=== PATIENT | male | born 1975 | race Caucasian/White ===

== ENCOUNTER 2019-10-12 13:17 | Outpatient (CLI) | payer OTHER, SELFPAY ==
--- NOTE | 2019-10-12 13:22 | XR_ITS ---
WS: [id number] ABDOMEN KUB CLINICAL INFORMATION: Renal/ureteral calculi. COMPARISON: October 11, 2018 FINDINGS: No visualized renal parenchymal or ureteral calculi today. Normal bowel gas pattern. Mild lumbar curv e convex right. Stable acetabular protrusio XR/XR KUB [id number] Impression: No renal parenchymal or ureteral calculi.
== END 2019-10-12 13:18 | disposition home or self-care (01) ==
LOC: RAD 13:20
PROVIDERS: Family Provider Nurse Practitioner Family; PCP Nurse Practitioner Family; Visit Provider Urology
DX: N20.2 Calculus of kidney with calculus of ureter
CPT/HCPCS: 74018; 81001

== ENCOUNTER 2020-10-15 08:09 | Outpatient (CLI) | payer OTHER, SELFPAY ==
--- NOTE | 2020-10-15 08:15 | XR_ITS ---
WS: [id number] Exam: XR KUB [id number] Date/Time of Exam: 10/15/2020 8:19 AM Reason For Exam: N20.0 - Calculus of kidney Comparison 10/12/2019. No bowel obstruction or free air. Moderate amount retained stool in the colon. No obvious calcificati on superimpose the kidneys. Regional bony elements are intact. Visualized organ margins are unremarka ble. XR/XR KUB [id number] IMPRESSION: 1. No obvious calcifications identified in the region of the kidneys. 2. Moderate amount retained stool in the colon.
== END 2020-10-15 08:10 | disposition home or self-care (01) ==
LOC: RAD 08:13
PROVIDERS: PCP Nurse Practitioner Family; Visit Provider Urology
DX: N20.0 Calculus of kidney (principal)
CPT/HCPCS: 74018; 81003

== ENCOUNTER 2021-04-16 08:30 | Outpatient (CLI) | payer OTHER, SELFPAY ==
--- NOTE | 2021-04-16 08:37 | XR_ITS ---
WS: [id number] Exam: XR KUB [id number] Date/Time of Exam: 04/16/2021 8:39 AM Reason For Exam: UROLITHIASIS No bowel obstruction or free air. No calcifications noted in the region of the kidneys. No sign of or rossi enlargement. Moderately advanced DJD of both hips with the medial protrusion of the bilateral nicholas tabula. XR/XR KUB [id number] IMPRESSION: 1. No acute abdominal finding. 2. No calcifications are seen in the region of the kidneys.
== END 2021-04-16 08:31 | disposition home or self-care (01) ==
LOC: RAD 08:32
PROVIDERS: PCP Nurse Practitioner Family; Visit Provider Urology
DX: N20.9 Urinary calculus, unspecified (principal)
CPT/HCPCS: 74018; 81003

== ENCOUNTER 2021-11-27 06:53 | Outpatient (CLI) | payer OTHER, SELFPAY ==
--- NOTE | 2021-11-27 07:00 | XR_ITS ---
WS: [id number] Exam: XR KUB [id number] Date/Time of Exam: 11/27/2021 6:58 AM Reason For Exam: CALCULUS OF KIDNEY WITH CALCULUS OF URETER Comparison 04/16/2021. No bowel obstruction or free air. Small calcification superimpose both renal silhouettes and may repr esent renal calculi or debris in the GI tract. No sign of organ enlargement. Moderate degenerative ch ana of both hips with the medial protrusion of the acetabuli. XR/XR KUB [id number] IMPRESSION: 1. No acute abdominal finding. 2. Small calcification superimpose both kidneys. This may represent renal calcu li or debris in the GI tract.
== END 2021-11-27 06:54 | disposition home or self-care (01) ==
PROVIDERS: PCP Nurse Practitioner Family; Visit Provider Urology
DX: N20.2 Calculus of kidney with calculus of ureter (principal)
CPT/HCPCS: 74018; 81003

== ENCOUNTER 2022-02-25 12:11 | Emergency (ER) | payer OTHER, SELFPAY ==
[2022-02-25 12:30] VITALS: BP 179/116; PULSE 90; RESP 14; TEMP 36.5; O2SAT 98
--- NOTE | 2022-02-25 12:43 | ED_ITS ---
Documented by User: ANABELL Banegas 02/26/22 08:52 HPI - Abdominal Pain General: Chief Complaint: Abdominal Pain Stated Complaint: Lower back pain Time Seen by Provider: 02/25/22 12:38 History of Present Illness: Patient is a 46-year-old male comes to the ED with right flank pain. Symptoms started yesterday evening. Symptoms started after he ate dinner yesterday. Patient has a history of kidney stones and says this pain is similar to past kidney stones. Pain is located in the right lower back and radiates into his right flank. He rates his pain currently a 9 out of 10. Endorses decreased appetite,nausea and vomiting due to pain. He denies having any dysuria, hematuria, or fevers. Associated Symptoms: Reports nausea and vomiting; Denies chills, constipation, diarrhea, dysuria, fever(s), hematochezia and hematuria Review of Systems Const: Denies: fever(s), chills or fatigue Eyes: Denies: change in vision or eye discomfort ENMT: Denies: throat pain, odynophagia, nasal discharge or nasal congestion Card: Denies: chest pain, palpitations, edema, swelling of feet/ankles, dyspnea on exertion or orthopnea Resp: Denies: dyspnea, productive cough or non-productive cough GI: Reports: nausea and vomiting; Denies: abdominal pain, diarrhea, constipation or hematochezia : Reports: flank pain (Right sided); Denies: difficulty urinating, dysuria or hematuria Musc: Denies: neck pain, back pain or extremity swelling Skin/Breast: Denies: rash or new lesions Neuro: Denies: headache(s), numbness in extremities or weakness in extremities PFS ED PFSH: Medical History Calcium ureterolithiasis Hypertension S/P extracorporeal shock wave therapy Urolithiasis Family History Father Lung disease Mother No problems noted. Social History Smoking and tobacco status: never smoked Alcohol intake: never Marital status: Current occupational status: employed History of recent travel: No Physical Exam Const: COMMON NORMALS: patient oriented x3 and alert GENERAL APPEARANCE: co operative HENMT: COMMON NORMALS: normocephalic HEAD & SCALP: normocephalic MOUTH: Normal oral and palatal mucosa present THROAT: posterior oropharynx normal and uvula midline Neck/C-Spine: COMMON NORMALS: supple GENERAL: Yes normal visual inspection Resp: COMMON NORMALS: normal respiratory effort, No retractions, No use of accessory muscles and clear to auscultation bilaterally AUSCULTATION: clear to auscultation bilaterally Cardio: COMMON NORMALS: regular rate, regular rhythm, S1 normal heart sound present, S2 normal heart sound present, No gallops present (Cardio), No clicks present (Cardio), No murmurs present (Cardio) and Peripheral pulses 2+ throughout RATE: regular rate RHYTHM: regular rhythm HEART SOUNDS: S1 normal heart sound present and S2 normal heart sound present PERIPHERAL PULSES: Peripheral pulses 2+ throughout GI: COMMON NORMALS: Normal to inspection, nondistended, normoactive bowel sounds present, Soft to palpation, non-tender and no masses PALPATION: Yes Soft to palpation : BLADDER/KIDNEY EXAM: Yes CVA tenderness on the right Back/Pelvis: GENERAL BACK: Yes CVA tenderness Extremity: COMMON NORMALS: normal to inspection Neuro: COMMON NORMALS: patient oriented x3 SENSORIUM/ORIENTATION: Yes alert GAIT: Yes Normal gait present Skin: GENERAL SKIN EXAM: dry skin Course ED course: Right after patient had IV placed he had a syncopal episode. He denies any shortness of breath or chest pain. After some IV fluids he said he was feeling back to normal. Patient's pain and nausea was controlled here in the ED with meds and he was able to keep p.o. fluids down. Vital Signs: Vital signs: Vital Signs Temperature 97.7 F 02/25/22 12:30 Pulse Rate 78 02/25/22 13:23 Respiratory Rate 18 02/25/22 13:36 Blood Pressure 182/76 02/25/22 13:23 Pulse Oximetry 100 02/25/22 13:36 Oxygen Delivery Me thod 02/25/22 13:23 MDM - Abdominal Pain Medical Decision Making Patient is a 46-year-old male comes to the ED with right flank pain. Symptoms started yesterday evening. Symptoms started after he ate dinner yesterday. Patient has a history of kidney stones and says this pain is similar to past kidney stones. Pain is located in the right lower back and radiates into his right flank. He rates his pain currently a 9 out of 10. Endorses decreased appetite,nausea and vomiting due to pain. He denies having any dysuria, hematuria, or fevers. Vitals are stable. Exam of patient shows some right flank and right CVA tenderness. Rest of exam is benign. White blood cell count 13.7, lipase was normal at 16. And the rest of CBC and CMP were unremarkable. UA showed a little bit of red blood cells. Patient had a syncopal episode after IV, so further work-up was done. Troponins negative and EKG showed normal sinus rhythm right after patient had IV placed he had a syncopal episode. He denies any shortness of breath or chest pain. CT of abdomen pelvis showed some mild inflammatory stranding in the head of the pancreas suspicious for acute pancreatitis. After some IV fluids he said he was feeling back to normal. Patient's pain and nausea was controlled here in the ED with meds and he was able to keep p.o. fluids down. Patient was stable for outpatient treatment of pancreatitis. He was told to have 48 hours of bowel rest and to only have a clear liquid diet. Then after that advance diet slowly as tolerated. He was sent home with a prescription for nausea meds and hydrocodone for pain. Strict return to ED precautions given. He was told to follow-up with his PCP in the next 3 to 5 days for reevaluation. Patient understood and agreed with plan. Lab Data I reviewed the patient's lab results. : 02/25/22 13:00 02/25/22 13:00 Labs/Radiology: Radiology Impressions Abdomen/Pelvis CT 02/25/22 13:16 IMPRESSION: 1. Mild inflammatory stranding in the head of the pancreas suspicious for acute pancreatitis. Recommend correlation with pancreatic enzymes. No fluid collections. 2. No obstructing renal or ureteral calculi bilaterally. 3. Small esophageal hiatal hernia. 4. Noncalcified nodule RIGHT lower lobe measuring 6 mm recommend 6 month follow-up chest CT. 5. Mild prostate prominence measuring 4.1 cm. Notified ANABELL Banegas at 02/25/2022 2:26 PM. Laboratory Results WBC 13.7 10^3/uL (4.0-10.0) H 02/25/22 13:00 RBC 5.74 10^6/uL (4.1-5.3) H 02/25/22 13:00 Hgb 17.5 g/dL (11.7-16.6) H 02/25/22 13:00 Hct 49.5 % (42.0-52.0) 02/25/22 13:00 MCV 86.2 fl (80-94) 02/25/22 13:00 MCH 30.5 pg (28.0-34.0) 02/25/22 13:00 MCHC 35.4 g/dL (30.0-36.0) 02/25/22 13:00 RDW 12.7 % (12.1-15.1) 02/25/22 13:00 Plt Count 249 10^3/cmm (130-400) 02/25/22 13:00 MPV 10.4 fL (7.4-10.4) 02/25/22 13:00 Neut % (Auto) 84.0 % 02/25/22 13:00 Lymph % (Auto) 11.3 % 02/25/22 13:00 [place] % (Auto) 3.9 % 02/25/22 13:00 Eos % (Auto) 0.2 % 02/25/22 13:00 Baso % (Auto) 0.2 % 02/25/22 13:00 Neut # (Auto) 11.54 10^3/uL (1.8-7.7) H 02/25/22 13:00 Lymph # (Auto) 1.6 10^3/uL (0.8-4.8) 02/25/22 13:00 [place] # (Auto) 0.5 10^3/uL (0.2-0.9) 02/25/22 13:00 Eos # (Auto) 0.0 10^3/uL (0.0-0.8) 02/25/22 13:00 Baso # (Auto) 0.0 10^3/uL (0.0-0.1) 02/25/22 13:00 Nucleated RBC % (auto) 0 % 02/25/22 13:00 Nucleated RBCs # 0.0 /100WBC 02/25/22 13:00 Sodium 134 mmol/L (136-145) L 02/25/22 13:00 Potassium 3.9 mmol/L (3.5-5.1) 02/25/22 13:00 Chloride 97 mmol/L (98-107) L 02/25/22 13:00 Carbon Dioxide 26 mmol/L (22-29) 02/25/22 13:00 Anion Gap 14.9 (5-19) 02/25/22 13:00 BUN 12 mg/dL (6-20) 02/25/22 13:00 Creatinine 0.8 mg/dL (0.7-1.2) 02/25/22 13:00 GFR Calculation 103.2 mL/min (90-130) 02/25/22 13:00 Glucose 137 mg/dL (65-115) H 02/25/22 13:00 Calculated Osmolality 280 mOsm/kg (285-295) L 02/25/22 13:00 Calcium 9.7 mg/dL (8.5-10.5) 02/25/22 13:00 Total Bilirubin 0.8 mg/dL (0.15-1.2) 02/25/22 13:00 AST 18 U/L (0-40) 02/25/22 13:00 ALT 20 U/L (0-41) 02/25/22 13:00 Alkaline Phosphatase 85 U/L (40-130) 02/25/22 13:00 Troponin T Baseline 6 ng/L (0-15) 02/25/22 13:00 Troponin T 120 Minute 6.00 ng/L (0-15) 02/25/22 15:05 Delta Troponin T 0 ABS# (0-10) 02/25/22 15:05 Total Protein 7.7 g/dL (6.6-8.7) 02/25/22 13:00 Albumin 4.6 g/dL (3.5-5.2) 02/25/22 13:00 Globulin 3.1 g/dL (1.3-4.6) 02/25/22 13:00 Lipase 16 U/L (13-60) 02/25/22 13:00 Urine Color Yellow (Yellow) 02/25/22 13:18 Urine Appearance Clear (CLEAR) 02/25/22 13:18 Urine pH 6.5 (5-7) 02/25/22 13:18 Ur Specific [place] 1.015 (1.005-1.030) 02/25/22 13:18 Urine Protein Trace (Negative) 02/25/22 13:18 Urine Glucose (UA) Norm (Normal) 02/25/22 13:18 Urine Ketones 1+ (Negative) H 02/25/22 13:18 Urine Blood Neg (Negative) 02/25/22 13:18 Urine Nitrate Negative (Negative) 02/25/22 13:18 Urine Bilirubin Neg (Negative) 02/25/22 13:18 Urine Urobilinogen 1 mg/dL (Negative) H 02/25/22 13:18 Ur Leukocyte Esterase Negative (Negative) 02/25/22 13:18 Urine RBC 0-4 /hpf (0-2) H 02/25/22 13:18 Urine WBC 0-4 /hpf (0-5) H 02/25/22 13:18 Ur Squamous Epith Cells 0-4 /hpf (0-5) H 02/25/22 13:18 Amorphous Sediment Not Reportable 02/25/22 13:18 Urine Bacteria None /hpf (NONE) 02/25/22 13:18 Discharge Plan Discharge Patient Disposition: Home Clinical Impression: Pancreatitis Qualifiers: Chronicity: acute Pancreatitis type: unspecified pancreatitis type Acute pancreatitis complication: no infection or necrosis Qualified Code(s): K85.90 - Acute pancreatitis without necrosis or infection, unspecified Condition: Stable Prescriptions: New ondansetron 4 mg tablet,disintegrating 4 mg PO Q8H PRN (Reason: nausea and vomiting) Qty: 21 0RF No Action atorvastatin 10 mg tablet 10 mg PO DAILY cetirizine [Zyrtec] 10 mg tablet 10 mg PO DAILY PRN allopurinol 300 mg tablet 300 mg PO DAILY amlodipine-olmesartan 10-40 mg tablet 1 tab PO DAILY azithromycin 250 mg tablet See Rx Instructions PO .COMPLEX Qty: 6 0RF Rx Instructions: For 250 mg dose pack: take 500 mg today (day 1), then 250 mg for 4 days (days 2-5) PO prednisone 20 mg tablet 20 mg PO DAILY Qty: 3 0RF Discharge Orders: Discharge ED (Routine); Ordered 02/25/22 Ordered By: Reginaldo Roberts Referrals: Yi Medrano FNP-C [Primary Care Provider] - Discharge Diet: Advance as tolerated and Clear Liquid Discharge Activity: Increase activity as tolerated Patient Instructions: Pancreatitis (ED), Opioid Safety Activity Restrictions/Additional Instructions: Follow-up with your PCP within the next 2 to 3 days for reevaluation. Clear liquid diet for the next 48 hours then after that slowly advance diet as tolerated. Make sure you are drinking plenty water and staying hydrated. Take medications as prescribed. Return to the ER or your medical provider if condition worsens. Please read and understand discharge instructions. Thank you for choosing [facility] for your healthcare needs today. Please realize this is an emergency room and that we are providing you with a medical screening exam and this may not be complete and all inclusive of all the testing and or work up that you may need to determine your ailment or severity of your illness. It is very important that you follow up as instructed or that you return to the Emergency Department should you have concerns or if your condition changes or worsens in any way. Coding Level of Care Code ED Vice President Of Operations for Chg Fwd Exam Comprehensive Documented by User: Yannick Moya MD 03/01/22 20:43 HPI - Abdominal Pain General: Chief Complaint: Abdominal Pain Stated Complaint: Lower back pain Time Seen by Provider: 02/25/22 12:38 [facility] ED PFSH: Medical History Calcium ureterolithiasis Hypertension S/P extracorporeal shock wave therapy Urolithiasis Family History Father Lung disease Mother No problems noted. Social History Smoking and tobacco status: never smoked Alcohol intake: never Marital status: Current occupational status: employed History of recent travel: No Course Vital Signs: Vital signs: Vital Signs Temperature 97.7 F 02/25/22 12:30 Pulse Rate 78 02/25/22 13:23 Respiratory Rate 18 02/25/22 13:36 Blood Pressure 182/76 02/25/22 13:23 Pulse Oximetry 100 02/25/22 13:36 Oxygen Delivery Me thod 02/25/22 13:23 MDM - Abdominal Pain Medical Decision Making Patient is a 46-year-old male comes to the ED with right flank pain. Symptoms started yesterday evening. Symptoms started after he ate dinner yesterday. Patient has a history of kidney stones and says this pain is similar to past kidney stones. Pain is located in the right lower back and radiates into his right flank. He rates his pain currently a 9 out of 10. Endorses decreased appetite,nausea and vomiting due to pain. He denies having any dysuria, hematuria, or fevers. Vitals are stable. Exam of patient shows some right flank and right CVA tenderness. Rest of exam is benign. White blood cell count 13.7, lipase was normal at 16. And the rest of CBC and CMP were unremarkable. UA showed a little bit of red blood cells. Patient had a syncopal episode after IV, so further work-up was done. Troponins negative and EKG showed normal sinus rhythm right after patient had IV placed he had a syncopal episode. He denies any shortness of breath or chest pain. CT of abdomen pelvis showed some mild inflammatory stranding in the head of the pancreas suspicious for acute pancreatitis. After some IV fluids he said he was feeling back to normal. Patient's pain and nausea was controlled here in the ED with meds and he was able to keep p.o. fluids down. Patient was stable for outpatient treatment of pancreatitis. He was told to have 48 hours of bowel rest and to only have a clear liquid diet. Then after that advance diet slowly as tolerated. He was sent home with a prescription for nausea meds and hydrocodone for pain. Strict return to ED precautions given. He was told to follow-up with his PCP in the next 3 to 5 days for reevaluation. Patient understood and agreed with plan. I discussed this case with ANABELL Banegas. I have reviewed documentation. Yannick Moya MD Emergency Medicine Lab Data : 02/25/22 13:00 02/25/22 13:00 Labs/Radiology: Radiology Impressions Abdomen/Pelvis CT 02/25/22 13:16 IMPRESSION: 1. Mild inflammatory stranding in the head of the pancreas suspicious for acute pancreatitis. Recommend correlation with pancreatic enzymes. No fluid collecti ons. 2. No obstructing renal or ureteral calculi bilaterally. 3. Small esophageal hiatal hernia. 4. Noncalcified nodule RIGHT lower lobe measuring 6 mm recommend 6 month follow-up chest CT. 5. Mild prostate prominence measuring 4.1 cm. Notified ANABELL Banegas at 02/25/2022 2:26 PM. Laboratory Results WBC 13.7 10^3/uL (4.0-10.0) H 02/25/22 13:00 RBC 5.74 10^6/uL (4.1-5.3) H 02/25/22 13:00 Hgb 17.5 g/dL (11.7-16.6) H 02/25/22 13:00 Hct 49.5 % (42.0-52.0) 02/25/22 13:00 MCV 86.2 fl (80-94) 02/25/22 13:00 MCH 30.5 pg (28.0-34.0) 02/25/22 13:00 MCHC 35.4 g/dL (30.0-36.0) 02/25/22 13:00 RDW 12.7 % (12.1-15.1) 02/25/22 13:00 Plt Count 249 10^3/cmm (130-400) 02/25/22 13:00 MPV 10.4 fL (7.4-10.4) 02/25/22 13:00 Neut % (Auto) 84.0 % 02/25/22 13:00 Lymph % (Auto) 11.3 % 02/25/22 13:00 [place] % (Auto) 3.9 % 02/25/22 13:00 Eos % (Auto) 0.2 % 02/25/22 13:00 Baso % (Auto) 0.2 % 02/25/22 13:00 Neut # (Auto) 11.54 10^3/uL (1.8-7.7) H 02/25/22 13:00 Lymph # (Auto) 1.6 10^3/uL (0.8-4.8) 02/25/22 13:00 [place] # (Auto) 0.5 10^3/uL (0.2-0.9) 02/25/22 13:00 Eos # (Auto) 0.0 10^3/uL (0.0-0.8) 02/25/22 13:00 Baso # (Auto) 0.0 10^3/uL (0.0-0.1) 02/25/22 13:00 Nucleated RBC % (auto) 0 % 02/25/22 13:00 Nucleated RBCs # 0.0 /100WBC 02/25/22 13:00 Sodium 134 mmol/L (136-145) L 02/25/22 13:00 Potassium 3.9 mmol/L (3.5-5.1) 02/25/22 13:00 Chloride 97 mmol/L (98-107) L 02/25/22 13:00 Carbon Dioxide 26 mmol/L (22-29) 02/25/22 13:00 Anion Gap 14.9 (5-19) 02/25/22 13:00 BUN 12 mg/dL (6-20) 02/25/22 13:00 Creatinine 0.8 mg/dL (0.7-1.2) 02/25/22 13:00 GFR Calculation 103.2 mL/min (90-130) 02/25/22 13:00 Glucose 137 mg/dL (65-115) H 02/25/22 13:00 Calculated Osmolality 280 mOsm/kg (285-295) L 02/25/22 13:00 Calcium 9.7 mg/dL (8.5-10.5) 02/25/22 13:00 Total Bilirubin 0.8 mg/dL (0.15-1.2) 02/25/22 13:00 AST 18 U/L (0-40) 02/25/22 13:00 ALT 20 U/L (0-41) 02/25/22 13:00 Alkaline Phosphatase 85 U/L (40-130) 02/25/22 13:00 Troponin T Baseline 6 ng/L (0-15) 02/25/22 13:00 Troponin T 120 Minute 6.00 ng/L (0-15) 02/25/22 15:05 Delta Troponin T 0 ABS# (0-10) 02/25/22 15:05 Total Protein 7.7 g/dL (6.6-8.7) 02/25/22 13:00 Albumin 4.6 g/dL (3.5-5.2) 02/25/22 13:00 Globulin 3.1 g/dL (1.3-4.6) 02/25/22 13:00 Lipase 16 U/L (13-60) 02/25/22 13:00 Urine Color Yellow (Yellow) 02/25/22 13:18 Urine Appearance Clear (CLEAR) 02/25/22 13:18 Urine pH 6.5 (5-7) 02/25/22 13:18 Ur Specific [place] 1.015 (1.005-1.030) 02/25/22 13:18 Urine Protein Trace (Negative) 02/25/22 13:18 Urine Glucose (UA) Norm (Normal) 02/25/22 13:18 Urine Ketones 1+ (Negative) H 02/25/22 13:18 Urine Blood Neg (Negative) 02/25/22 13:18 Urine Nitrate Negative (Negative) 02/25/22 13:18 Urine Bilirubin Neg (Negative) 02/25/22 13:18 Urine Urobilinogen 1 mg/dL (Negative) H 02/25/22 13:18 Ur Leukocyte Esterase Negative (Negative) 02/25/22 13:18 Urine RBC 0-4 /hpf (0-2) H 02/25/22 13:18 Urine WBC 0-4 /hpf (0-5) H 02/25/22 13:18 Ur Squamous Epith Cells 0-4 /hpf (0-5) H 02/25/22 13:18 Amorphous Sediment Not Reportable 02/25/22 13:18 Urine Bacteria None /hpf (NONE) 02/25/22 13:18 Discharge Plan Discharge Patient Disposition: Home Clinical Impression: Pancreatitis Qualifiers: Chronicity: acute Pancreatitis type: unspecified pancreatitis type Acute pancreatitis complication: no infection or necrosis Qualified Code(s): K85.90 - Acute pancreatitis without necrosis or infection, unspecified Condition: Stable Prescriptions: New ondansetron 4 mg tablet,disintegrating 4 mg PO Q8H PRN (Reason: nausea and vomiting) Qty: 21 0RF No Action atorvastatin 10 mg tablet 10 mg PO DAILY cetirizine [Zyrtec] 10 mg tablet 10 mg PO DAILY PRN allopurinol 300 mg tablet 300 mg PO DAILY amlodipine-olmesartan 10-40 mg tablet 1 tab PO DAILY azithromycin 250 mg tablet See Rx Instructions PO .COMPLEX Qty: 6 0RF Rx Instructions: For 250 mg dose pack: take 500 mg today (day 1), then 250 mg for 4 days (days 2-5) PO prednisone 20 mg tablet 20 mg PO DAILY Qty: 3 0RF Discharge Orders: Discharge ED (Routine); Ordered 02/25/22 Ordered By: Reginaldo Roberts Referrals: Yi Medrano FNP-C [Primary Care Provider] - Discharge Diet: Advance as tolerated and Clear Liquid Discharge Activity: Increase activity as tolerated Patient Instructions: Pancreatitis (ED), Opioid Safety Activity Restrictions/Additional Instructions: Follow-up with your PCP within the next 2 to 3 days for reevaluation. Clear liquid diet for the next 48 hours then after that slowly advance diet as tolerated. Make sure you are drinking plenty water and staying hydrated. Take medications as prescribed. Return to the ER or your medical provider if conditi on worsens. Please read and understand discharge instructions. Thank you for choosing [facility] for your healthcare needs today. Please realize this is an emergency room and that we are providing you with a medical screening exam and this may not be complete and all inclusive of all the testing and or work up that you may need to determine your ailment or severity of your illness. It is very important that you follow up as instructed or that you return to the Emergency Department should you have concerns or if your condition changes or worsens in any way. Coding Level of Care Code ED Vice President Of Operations for Chg Fwd Exam Comprehensive
[2022-02-25] MEDS: ondansetron 2 mg/ML SDV 2 mL 4 MG IVP (12:56)
[2022-02-25] MEDS: sodium chloride 0.9% 500 ML 999 ML IV (13:07)
[2022-02-25 13:15] LABS: Basophils % 0.2 %; Eosinophils % 0.2 %; Hematocrit 49.5 % (42.0-52.0); Hemoglobin 17.5 g/dL (11.7-16.6); Lymphocytes # 1.6 10^3/uL (0.8-4.8); Lymphocytes % 11.3 %; Mean Corpuscular HGB Conc 35.4 g/dL (30.0-36.0); Mean Corpuscular Hemoglobin 30.5 pg (28.0-34.0); Mean Corpuscular Volume 86.2 fl (80-94); Mean Platelet Volume 10.4 fL (7.4-10.4); Monocytes # 0.5 10^3/uL (0.2-0.9); Monocytes % 3.9 %; Neutrophils # 11.54 10^3/uL (1.8-7.7); Nucleated Red Blood Cells % 0 %; Platelet Count 249 10^3/cmm (130-400); Red Blood Count 5.74 10^6/uL (4.1-5.3); Red Cell Distribution Width 12.7 % (12.1-15.1); White Blood Count 13.7 10^3/uL (4.0-10.0)
--- NOTE | 2022-02-25 13:16 | CT_ITS ---
WS: [id number] CT ABDOMEN PELVIS TECHNIQUE: Noncontrast CT of the abdomen and pelvis with coronal and sagittal reformatted images. CLINICAL INFORMATION: Right flank pain COMPARISON: 2018 DLP: 1210.[address] scans at [facility] use at least one of these dose optimization techniques: automated e xposure control; mA and/or kV adjustment per patient size (includes targeted exams where dose is matc hed to clinical indication); or iterative reconstruction. FINDINGS: No hydronephrosis in RIGHT kidney. RIGHT ureter is decompressed. No obstructing RIGHT renal or ureter al calculi. No obstructing LEFT renal or ureteral calculi. Tiny nonobstructing calyceal tip calculi bilaterally. Fatty atrophy of the pancreas. Slight induration and edema involving the head of the pancreas suspici ous for pancreatitis. Correlation with pancreatic enzymes. Small esophageal hiatal hernia. Normal nor mal-appearing gallbladder. Slight atelectasis in the lung bases. Noncalcified nodule RIGHT lower lobe measuring 6 mm. Recommend 6 month follow-up chest CT. Nodule is new since 2018. Adrenal glands are normal. Normal caliber abdominal aorta. Aortic calcification. Tiny fat-containing umbilical hernia. Prior postoperative changes partial sigmo id resection with anastomosis. No high-grade small or large bowel obstruction. Surgical clips in the pelvis. Mild prostate enlargement measuring 4.1 CCM. Disc space narrowing worse L5-S1. CT/CT kidney stone [id number] IMPRESSION: 1. Mild inflammatory stranding in the head of the pancreas suspicious for acut e pancreatitis. Recommend correlation with pancreatic enzymes. No fluid collect ions. 2. No obstructing renal or ureteral calculi bilaterally. 3. Small esophageal hiatal hernia. 4. Noncalcified nodule RIGHT lower lobe measuring 6 mm recommend 6 month follo w-up chest CT. 5. Mild prostate prominence measuring 4.1 cm. Notified ANABELL Banegas at 02/25/2022 2:26 PM.
[2022-02-25 13:23] VITALS: BP 182/76; PULSE 78; RESP 16; O2SAT 100
[2022-02-25 13:36] VITALS: RESP 18; O2SAT 100
[2022-02-25] MEDS: HYDROmorphone 1 mg/mL INJ 1 mL 0.5 MG IVP ×2 (13:36→14:46)
[2022-02-25 13:39] LABS: Alanine Aminotransferase 20 U/L (0-41); Albumin Level 4.6 g/dL (3.5-5.2); Alkaline Phosphatase 85 U/L (40-130); Anion Gap 14.9 (5-19); Aspartate Amino Transferase 18 U/L (0-40); Blood Urea Nitrogen 12 mg/dL (6-20); Calcium 9.7 mg/dL (8.5-10.5); Carbon Dioxide 26 mmol/L (22-29); Chloride 97 mmol/L (98-107); Globulin 3.1 g/dL (1.3-4.6); Glomerular Filtration Rate 103.2 mL/min (90-130); Glucose 137 mg/dL (65-115); Lipase 16 U/L (13-60); Osmolality Calculated 280 mOsm/kg (285-295); Potassium 3.9 mmol/L (3.5-5.1); Sodium 134 mmol/L (136-145); Total Bilirubin 0.8 mg/dL (0.15-1.2); Total Protein 7.7 g/dL (6.6-8.7)
[2022-02-25 13:49] LABS: Urine Appearance Clear (CLEAR); Urine Color Yellow (Yellow)
[2022-02-25 13:50] LABS: Add Urine Culture? No; Add Urine Microscopic? YES; Bilirubin Urine Neg (Negative); Blood Urine Neg (Negative); Glucose Urine UA Norm (Normal); Ketones Urine 1+ (Negative); Leukocyte Esterase Urine Negative (Negative); Nitrate Urine Negative (Negative); Protein Urine Trace (Negative); RBC Urine 0-4 /hpf (0-2); Specific Gravity, Urine 1.015 (1.005-1.030); Squamous Epithelial Cell Urine 0-4 /hpf (0-5); Urobilinogen Urine 1 mg/dL (Negative); WBC Urine 0-4 /hpf (0-5); pH Urine 6.5 (5-7)
[2022-02-25 13:58] LABS: Troponin(5th) Baseline 6 ng/L (0-15)
[2022-02-25 15:58] LABS: Troponin 5 2HR Delta 0 ABS# (0-10)
== END 2022-02-25 15:18 | disposition home or self-care (01) ==
PROVIDERS: Emergency Provider Physician Assistant; PCP Nurse Practitioner Family
DX: K85.90 Acute pancreatitis without necrosis or infection, unspecified (principal); I10 Essential (primary) hypertension
CPT/HCPCS: 36415; 74176; 80053; 81001; 83690; 84484; 85025; 96361; 96374; 96375; 96376; 99285; J1170; J2405; J7040